=== PATIENT | male | born 1960 | race African-American/Black ===

== ENCOUNTER 2025-04-02 07:16 | Day surgery (SDC) | payer MEDICARE, SELFPAY ==
[2025-02-24 08:46] VITALS: BMI 26.6
[2025-03-23 09:31] VITALS: BMI 26.3
[2025-04-02 07:37] VITALS: BP 134/80; PULSE 68; RESP 17; TEMP 37.1; O2SAT 97
[2025-04-02] MEDS: LACTATED RINGERS 1,000 ML 150 ML IV CONT (07:42)
--- NOTE | 2025-04-02 08:21 | WPDANESEPPF ---
Anes - Initial Pre Proc Eval Procedure: Operation Date: 04/02/25 09:00 Proposed Procedures p Screening Colonoscopy - Gregory Mensah MD Date/Time: 04/02/25 08:21 Surgeon: Gregory Mensah MD Pre Op Diagnosis: Encounter for screening for malignant neoplasm of Patient Data Age: 64 Gender: M Height: 1.88 m Weight: 91.8 kg Last Vital Signs Temp 37.1 C 04/02/25 07:37 Pulse 68 04/02/25 07:37 Resp 17 04/02/25 07:37 BP 134/80 04/02/25 07:37 Pulse Ox 97 04/02/25 07:37 O2 Del Method Room Air 04/02/25 07:37 Allergies Allergy/AdvReac Type Severity Reaction Status Date / Time banana AdvReac Mild Hives Verified 04/02/25 07:36 Home Medications ?Medication ?Instructions ?Recorded ?Confirmed ?Type cholecalciferol (vitamin D3) 125 125 mcg PO .QOD 05/14/21 04/02/25 History mcg (5,000 unit) tablet amlodipine 10 mg tablet 10 mg PO DAILY #90 tabs 03/23/25 04/02/25 Rx Patient hx anesthesia problems: none Family hx anesthesia problems: none Results Review: All pre-operative results and documents have been reviewed as part of the pre-operative evaluation. [facility] Past Medical History Medical History Acquired pes planus of both feet Acquired leg length discrepancy Vitamin D deficiency Gait instability Dyslipidemia Hypertension Effusion of neck (~08/2016) Surgical History Surgical History Status post left knee replacement (~2005) 2005 Status post right knee replacement (~2009) 2009 History of carpal tunnel release of both wrists History of fusion of cervical spine (~2016) 2017 History of carpal tunnel surgery (~12/2005) left - twice History of ankle surgery (~05/1990) left H/O foot surgery (~1963) left Family History Family History Unknown Hypertension Social History Social History Smoking status: Never smoker Alcohol intake: never Drinks per week: 12 Substance use: current Substance use type: marijuana Other substance usage details: DAILY Lack of Transportation: No Lack of Food: Never True Current Housing: I Have Housing Concerned About Future Housing: No Difficulty Paying Gas/Electric Bills: No Difficulty Paying for Meds: No Currently Unemployed: No Education: High School Diploma/GED Difficulty w/ Childcare or Family Care: No Living arrangements: alone Occupation/Education: retired Gender identity (if verbalized by the patient): Male Spiritual care concerns: No Anes - Eval Final PreProcedure Day of Procedure 04/02/25 08:21 Patient weight: normal Heart: regular rate and rhythm Lungs: clear to auscultation Airway: Mallampati scale class II Neurological: alert and oriented Last oral intake: >/= 8 hours ASA classification: II Emergent: no Anesthetic plan: proceed Anesthesia type and monitoring: monitored anesthesia care and standard monitoring Results Review: All pre-operative results and documents have been reviewed as part of the pre-operative evaluation. Informed Consent: The patient's anesthetic plan and its attendant risks and benefits were discussed with the patient/family/POA. Questions were solicited and answers provided to the satisfaction of the patient/family/POA.
--- NOTE | 2025-04-02 08:58 | PM.IMHP ---
H&P: HPI History of Present Illness Date/Time: 04/02/25 08:58 Chief Complaint: Screening colonoscopy Narrative: This is the patient's first colonoscopy after more than 10 years.. There are no GI symptoms and there is no family history of colorectal cancer. Review of Systems Review of Systems: All systems reviewed & are unremarkable except as noted in HPI and below PMFSH Past Medical History Medical History Acquired pes planus of both feet Acquired leg length discrepancy Vitamin D deficiency Gait instability Dyslipidemia Hypertension Effusion of neck (~08/2016) Surgical History Surgical History Status post left knee replacement (~2005) 2005 Status post right knee replacement (~2009) 2009 History of carpal tunnel release of both wrists History of fusion of cervical spine (~2016) 2017 History of carpal tunnel surgery (~12/2005) left - twice History of ankle surgery (~05/1990) left H/O foot surgery (~1963) left Family History Family History Unknown Hypertension Social History Social History Smoking status: Never smoker Alcohol intake: never Drinks per week: 12 Substance use: current Substance use type: marijuana Other substance usage details: DAILY Lack of Transportation: No Lack of Food: Never True Current Housing: I Have Housing Concerned About Future Housing: No Difficulty Paying Gas/Electric Bills: No Difficulty Paying for Meds: No Currently Unemployed: No Education: High School Diploma/GED Difficulty w/ Childcare or Family Care: No Living arrangements: alone Occupation/Education: retired Gender identity (if verbalized by the patient): Male Spiritual care concerns: No Meds Home Medications and Allergies Home Medications ?Medication ?Instructions ?Recorded ?Confirmed ?Type cholecalciferol (vitamin D3) 125 125 mcg PO .QOD 05/14/21 04/02/25 History mcg (5,000 unit) tablet amlodipine 10 mg tablet 10 mg PO DAILY #90 tabs 03/23/25 04/02/25 Rx Allergies Allergy/AdvReac Type Severity Reaction Status Date / Time banana AdvReac Mild Hives Verified 04/02/25 07:36 Vital Signs Vital Signs - 24 hr 04/02/25 07:37 Temperature 98.7 F Pulse Rate 68 Respiratory Rate 17 Blood Pressure 134/80 Pulse Oximetry 97 Oxygen Delivery Room Air Exam Const: General: cooperative and healthy appearing Resp: Effort & Inspection: normal respiratory effort and able to speak in complete sentences Auscultation: clear to auscultation bilaterally Cardio: Rate: regular rate Rhythm: regular rhythm GI: Inspection: normal to inspection GI Palp: No No hepatosplenomegaly present Auscultation: normal bowel sounds Rectal Exam: deferred Skin: General skin exam: normal color Psych: Appearance: grossly normal Mental Status: mental status grossly normal Assessment and Plan Assessment and plan (1) Screen for colon cancer: Code(s): Z12.11 - Encounter for screening for malignant neoplasm of colon Status: Acute Assessment and Plan: The patient is deemed a good candidate for the procedure. Consent signed. Will proceed.
[2025-04-02 09:28] VITALS: BP 125/77; PULSE 55; RESP 16; O2SAT 97
[2025-04-02 09:38] VITALS: BP 133/75; PULSE 52; RESP 16; O2SAT 100
[2025-04-02 09:48] VITALS: BP 141/77; PULSE 57; RESP 18; O2SAT 100
== END 2025-04-02 09:55 | disposition home or self-care (01) ==
PROVIDERS: PCP Family Medicine; Referring Provider Family Medicine; Visit Provider Internal Medicine Gastroenterology
PROC: 0DJD8ZZ Inspection of Lower Intestinal Tract, Via Natural or Artificial Opening Endoscopic (ICD-10-PCS; CPT 45378; principal; 2025-04-02 09:00)
DX: Z12.11 Encounter for screening for malignant neoplasm of colon (principal); K57.30 Diverticulosis of large intestine without perforation or abscess without bleeding; K64.8 Other hemorrhoids
CPT/HCPCS: G0121